=== PATIENT | female | born 1940 | race Caucasian/White ===

== ENCOUNTER 2017-01-14 12:21 | Emergency (ER) | payer MEDICARE, OTHER ==
[~2017-01-14] VITALS: Ht 170.2 cm; Wt 90.0 kg
[~2017-01-14 12:21] MED LIST: ACETAMIN500 M2 OR; ACTOS15 MG PO; AMLODIPINE5 MG PO; ASPIRIN 81 LOW81 MG PO; ASPIRIN 8181 MG PO; BLOOD GLUCOSE TEST S SC; CALCIUM D- PO; DICLOFENAC75 MG OR; DICLOFENAC75 MG PO; EQL PAIN RELIE500 MG OR; ERYTHROMYCIN BAS1 GM OS; GLYB/METFO5 MG/500 M PO; HYDROCHLOROT25 MG PO; JANUMET1 TAB PO; LANCETS 30G30 G XX; LANTUS SOLOSTAR SC; LANTUS100 MG/ML SC; LIPITOR40 M1 PO; LIQUITEARS OS; LISINOP/HCTZ1 TA1 OR; LISINOP/HCTZ1 TA2 PO; LOTRISONE PO; METFORMIN500 M1 PO; METFORMIN500 MG PO; OMEPRAZOLE20 M2 PO; OMEPRAZOLE20 MG PO; OYSTER SHELL C250 MG; PEN NEEDLE1 SC; PERCOCET 5/325M1 TAB PO; SIMVASTATIN40 MG PO; TRIAMCINOLON0.11 EX; TRIANEX0.05 % EX; ULTRAM50 M1 PO; VALTREX1 GM PO; VITAFUSION; XARELTO10 MG PO
[2017-01-14 13:11] LABS: URINE BILIRUBIN - DIPSTICK NEGATIVE (NEGATIVE); URINE BLOOD DIPSTICK LARGE (NEGATIVE); URINE CLARITY TURBID; URINE COLOR YELLOW; URINE GLUCOSE - DIPSTICK >=1000 mg/dL (NEGATIVE); URINE KETONE TRACE mg/dL (NEGATIVE); URINE LEUK ESTERASE MODERATE (NEGATIVE); URINE NITRITE - DIPSTICK NEGATIVE (Negative); URINE PH 5.5 (4.5-8.0); URINE PROTEIN - DIPSTICK >=300 mg/dL (NEG-TRACE); URINE SPECIFIC GRAVITY >=1.030; URINE UROBILINOGEN - DIPSTICK 0.2 E.U./dL (0.2)
[2017-01-14 13:12] LABS: URINE BACTERIA MANY hpf; URINE EPITHELIAL CELLS MANY EPI/hpf (0-FEW); URINE WBC >100 WBC/hpf (0-5)
[2017-01-14] MEDS ORDERED: CIPROFLOXACN500 MG PO (13:16)
[2017-01-14] MEDS ORDERED: PYRIDIUM200 MG PO (13:16)
[2017-01-14 13:18] VITALS: BP 154/77
== END 2017-01-14 13:39 | disposition home or self-care (01) ==
LOC: ED 12:21
PROVIDERS: Emergency Medicine
DX: N39.0 Urinary tract infection, site not specified (principal); R30.0 Dysuria